=== PATIENT | male | born 1970 | race Caucasian/White ===

== ENCOUNTER → 2019-11-26 14:19 | Outpatient (CLI) | payer MEDICARE, MEDICAID, SELFPAY ==
[2019-11-26 15:34] LABS: Absolute Lymphocyte Count 3.44 X10^3/uL (0.83-4.51); Absolute Neutrophil Count 6.4 X10^3/uL (2.0-7.7); Basophil# 0.05 X10^3/uL; Basophil% 0.5 % (0-1); Eosinophil# 0.28 X10^3/uL; Eosinophils% 2.6 % (0-5); Hematocrit 45.6 % (40-54); Hemoglobin 15.3 g/dL (13.0-16.5); Lymphocyte # 3.44 X10^3/ul (4.0); Lymphocyte % 31.4 % (19-41); Mean Corp Hgb Conc 33.6 g/dL (32-36); Mean Corpuscular Volume 86.5 fL (80-94); Mean Platelet Vol. 11.1 fl (6.2-12.0); Monocyte# 0.76 X10^3/uL; Monocyte% 6.9 % (0-10); NRBC Flagged by Analyzer 0 % (0-5); Neutrophil # 6.36 X10^3/uL (2.7-7.7); Neutrophil % 58.1 % (47-70); Platelet Count 273 K/mm3 (150-450); RBC Distribution Width CV 12.4 % (11.6-14.6); RBC Distribution Width SD 39.7 fl (35.1-43.9); Red Blood Count 5.27 M/mm3 (4.6-6.2); White Blood Count 10.9 K/mm3 (4.4-11.0)
[2019-11-26 16:23] LABS: AST(SGOT) 21 U/L (15-37); Alanine Aminotransfer ALT/SGPT 24 U/L (16-61); Albumin, Serum 3.5 g/dL (3.2-5.0); Alkaline Phosphatase 81 U/L (45-117); Anion Gap 8 (5-15); BUN 18 mg/dL (7-18); BUN/Creat Ratio 18.3 RATIO (10-20); Bilirubin, Direct 0.13 mg/dL (0.00-0.30); Calcium,Total 8.9 mg/dL (8.5-10.1); Chloride 102 mmol/L (98-107); Creatinine, Serum 0.99 mg/dL (0.70-1.30); EST Glomerular Filtration Rate 86 mL/min (>60); Est Glom Filt Rate - Afr Amer 105 mL/min (>60); Globulin 4.3 g/dL (2.2-4.2); Glucose 99 mg/dL (74-106); Potassium 3.3 mmol/L (3.5-5.1); Protein, Total 7.8 g/dL (6.4-8.2); Sodium Level 140 mmol/L (136-145)
[2019-11-27 10:55] LABS: Hepatitis B Surface Antibody Non-Reactive; Hepatitis B Surface Antigen Non-Reactive (Nonreactive); Hepatitis C Antibody Non-Reactive (Nonreactive)
[2019-11-29 03:06] LABS: QNTFERON TB Mitogen Value > 10.00 IU/mL (.); QNTFERON TB Nil Value 0.02 IU/mL (.); QNTFERON TB1+ Ag Value 0.03 IU/mL (.); QNTFERON TB2+ Ag Value 0.02 IU/mL (.)
[2019-11-29 09:10] LABS: Hepatitis B Core AB IgM Negative (Negative); QNTIFERON TB Positive Criteria Negative (Negative)
== END ==
PROVIDERS: Referring Provider Dermatology; Visit Provider Dermatology
DX: L40.0 Psoriasis vulgaris (principal)
CPT/HCPCS: 36415; 80048; 80076; 85025; 86480; 86705; 86706; 86803; 87340

== ENCOUNTER → 2020-12-28 15:47 | Outpatient (CLI) | payer MEDICARE, SELFPAY ==
[2020-12-28 18:12] LABS: Absolute Lymphocyte Count 3.38 X10^3/uL (0.83-4.51); Absolute Neutrophil Count 7.2 X10^3/uL (2.0-7.7); Basophil# 0.07 X10^3/uL; Basophil% 0.6 % (0-1); Eosinophil# 0.32 X10^3/uL; Eosinophils% 2.7 % (0-5); Hematocrit 48.9 % (40-54); Hemoglobin 16.3 g/dL (13.0-16.5); Lymphocyte # 3.38 X10^3/ul (4.0); Lymphocyte % 28.3 % (19-41); Mean Corp Hgb Conc 33.3 g/dL (32-36); Mean Corpuscular Volume 90.1 fL (80-94); Mean Platelet Vol. 11.7 fl (6.2-12.0); Monocyte# 0.89 X10^3/uL; Monocyte% 7.5 % (0-10); NRBC Flagged by Analyzer 0 % (0-5); Neutrophil # 7.23 X10^3/uL (2.7-7.7); Neutrophil % 60.5 % (47-70); Platelet Count 285 K/mm3 (150-450); RBC Distribution Width CV 12.3 % (11.6-14.6); RBC Distribution Width SD 40.6 fl (35.1-43.9); Red Blood Count 5.43 M/mm3 (4.6-6.2); White Blood Count 11.9 K/mm3 (4.4-11.0)
[2020-12-28 18:26] LABS: ALB/GLOB Ratio 0.9 RATIO (0.9-2.4); AST(SGOT) 16 U/L (15-37); Alanine Aminotransfer ALT/SGPT 23 U/L (16-61); Albumin, Serum 3.6 g/dL (3.2-5.0); Alkaline Phosphatase 85 U/L (45-117); Anion Gap 6 (5-15); BUN 18 mg/dL (7-18); BUN/Creat Ratio 18.5 RATIO (10-20); Calcium,Total 8.9 mg/dL (8.5-10.1); Chloride 102 mmol/L (98-107); Creatinine, Serum 0.97 mg/dL (0.70-1.30); EST Glomerular Filtration Rate 87 mL/min (>60); Est Glom Filt Rate - Afr Amer 106 mL/min (>60); Globulin 3.8 g/dL (2.2-4.2); Glucose 73 mg/dL (74-106); Potassium 3.4 mmol/L (3.5-5.1); Protein, Total 7.4 g/dL (6.4-8.2); Sodium Level 140 mmol/L (136-145)
[2020-12-31 04:06] LABS: QNTFERON TB Mitogen Value > 10.00 IU/mL (.); QNTFERON TB Nil Value 0.04 IU/mL (.); QNTFERON TB1+ Ag Value 0.04 IU/mL (.); QNTFERON TB2+ Ag Value 0.02 IU/mL (.)
[2020-12-31 12:07] LABS: QNTIFERON TB Positive Criteria Negative (Negative)
== END ==
PROVIDERS: Referring Provider Dermatology; Visit Provider Dermatology
DX: L40.0 Psoriasis vulgaris (principal); Z79.899 Other long term (current) drug therapy
CPT/HCPCS: 36415; 80053; 85025; 86480

== ENCOUNTER 2021-08-15 07:08 | Emergency (ER) | payer MEDICARE, MEDICAID, SELFPAY ==
[2021-08-15 07:09] VITALS: BP 170/110; PULSE 73; RESP 27; TEMP 36.7; O2SAT 96; BMI 29.9
[2021-08-15 07:13] VITALS: O2SAT 95
[2021-08-15 07:28] VITALS: O2SAT 98
--- NOTE | 2021-08-15 07:28 | EKG12_ITS ---
Test Reason : Blood Pressure : / mmHG Vent. Rate : 063 BPM Atrial Rate : 063 BPM P-R Int : 172 ms QRS Dur : 092 ms QT Int : 410 ms P-R-T Axes : 066 000 057 degrees QTc Int : 419 ms Normal sinus rhythm Normal ECG Confirmed by VERA BLANCO, CHRISTOPHER ([id number]), commissioning editor LUIS MOJICA ([id number]) on 08/16/2021 9:28:03 AM Referred By: SEEMA Confirmed By:CHRISTOPHER GAMEZ MD
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
--- NOTE | 2021-08-15 07:45 | RAD_ITS ---
STUDY: X-RAY CHEST REASON FOR EXAM: Male, 51 years old. chest pain TECHNIQUE: AP COMPARISON: None. FINDINGS: EKG leads project over the chest. The lungs are clear and expanded. There is no demonstrated pleural abnormality. Normal size heart. Normal mediastinum and nathalia. Normal visualized pulmonary arteries. There is atherosclerotic calcification of the aortic arch with tortuosity. Normal visualized thoracic spine. Normal visualized ribs, clavicles, and shoulders. There is no demonstrated abnormality of the visualized soft tissue structures of the upper abdomen. RAD/Chest 1 View (Portable) IMPRESSION: Nonacute portable x-ray examination of the chest. Electronically Signed: Moiz Singh MD ([place]) at 7:57 EST , Service support ,
[2021-08-15 07:46] LABS: Absolute Lymphocyte Count 2.72 X10^3/uL (0.83-4.51); Absolute Neutrophil Count 3.7 X10^3/uL (2.0-7.7); Basophil# 0.06 X10^3/uL; Basophil% 0.8 % (0-1); Eosinophil# 0.31 X10^3/uL; Eosinophils% 4.1 % (0-5); Hematocrit 42.6 % (40-54); Hemoglobin 14.3 g/dL (13.0-16.5); Lymphocyte # 2.72 X10^3/ul (0.83-4.51); Lymphocyte % 36.2 % (19-41); Mean Corp Hgb Conc 33.6 g/dL (32-36); Mean Corpuscular Hgb 29.9 pg (27.0-32.0); Mean Corpuscular Volume 88.9 fL (80-94); Mean Platelet Vol. 10.2 fl (6.2-12.0); Monocyte# 0.73 X10^3/uL; Monocyte% 9.7 % (0-10); NRBC Flagged by Analyzer 0 % (0-5); Neutrophil # 3.68 X10^3/uL (2.7-7.7); Neutrophil % 48.9 % (47-70); Platelet Count 242 K/mm3 (150-450); RBC Distribution Width SD 42.8 fl (35.1-43.9); Red Blood Count 4.79 M/mm3 (4.6-6.2); White Blood Count 7.5 K/mm3 (4.4-11.0)
--- NOTE | 2021-08-15 07:52 | CT_ITS ---
EXAM: CT ANGIOGRAPHY CHEST WITHOUT AND WITH INTRAVENOUS CONTRAST CLINICAL INDICATION: hemoptysis TECHNIQUE: Helically acquired angiography images were obtained of the chest without and with intravenous contrast. This CT exam was performed using one or more of the following dose reduction techniques: automated exposure control, adjustment of the mA and/or kV according to patient size, and/or use of iterative reconstruction technique. This report was created using [employer] report generation technology. MIP reconstructed images were created and reviewed. CONTRAST: IV 100mL Isovue-300 COMPARISON: None. FINDINGS: PULMONARY ARTERIES: Unremarkable. Normal in caliber. No evidence of pulmonary embolism. AORTA: Operative changes of the aortic arch. Normal in caliber. No evidence of dissection. No thoracic aortic pseudoaneurysm or discrete outpouching identified. No extraluminal contrast. GREAT VESSELS OF AORTIC ARCH: Unremarkable. Normal in caliber. No evidence of dissection. LUNGS AND PLEURAL SPACES: Heterogeneous, ill-defined groundglass opacity and bronchovascular micronodules of the medial left upper lobe abutting the aortic arch. No pleural effusion or thickening. No pneumothorax. Fluid/debris layers dependently within the trachea and left upper lobe/lingular bronchi. HEART: Unremarkable. Heart size is normal. No pericardial effusion. No signs of right heart strain. MEDIASTINUM: Unremarkable. No mediastinal or hilar adenopathy. Esophagus is unremarkable. No hiatal hernia. THYROID: Unremarkable. No thyroid lesions. BONES/JOINTS: Unremarkable. No suspicious lytic or blastic abnormality. CT/CTA Chest W/WO Contrast IMPRESSION: 1. Localized airspace disease in the medial left upper lobe abutting the aortic arch suggesting pneumonia, localized edema or pulmonary hemorrhage/blood products. 2. Postoperative changes/graft of the aortic arch. 3. No central or segmental pulmonary embolism. 4. Fluid/debris in the dependent portion of the trachea and left bronchi. Electronically Signed: Moiz Singh MD ([place]) at 8:36 EST , Service support ,
[2021-08-15 07:54] LABS: Anion Gap 6 (5-15); BUN 17 mg/dL (7-18); Calcium,Total 8.8 mg/dL (8.5-10.1); Chloride 106 mmol/L (98-107); Creatinine, Serum 0.77 mg/dL (0.70-1.30); EST Glomerular Filtration Rate 114 mL/min (>60); Est Glom Filt Rate - Afr Amer 138 mL/min (>60); Estimated Creatinine Clearance 119.82 ml/min; Glucose 98 mg/dL (74-106); Sodium Level 141 mmol/L (136-145)
[2021-08-15 10:18] VITALS: BP 158/92; PULSE 65; RESP 22
[2021-08-15 10:22] VITALS: BP 158/92; PULSE 62; RESP 18
[2021-08-15] MEDS: Azithromycin 250 MG Tablet 500 MG PO (10:30)
== END 2021-08-15 10:33 | disposition home or self-care (01) ==
PROVIDERS: Emergency Provider Emergency Medicine
DX: J18.9 Pneumonia, unspecified organism (principal); R04.2 Hemoptysis; F17.210 Nicotine dependence, cigarettes, uncomplicated; Z86.718 Personal history of other venous thrombosis and embolism
CPT/HCPCS: 71045; 71275; 80048; 85025; 93005; 99285; Q9967; A4216

== ENCOUNTER 2024-09-26 04:05 | Emergency (ER) | payer MEDICARE, MEDICAID, SELFPAY ==
[2024-09-26] VITALS (11 sets, daily range): BP systolic 152–239; BP diastolic 78–122; PULSE 70–97; RESP 17–27; TEMP -17.7–36.9; O2SAT 84–100; BMI 29.7
--- NOTE | 2024-09-26 04:18 | EKG12_ITS ---
Test Reason : DYSRHYTHMIA Blood Pressure : */* mmHG Vent. Rate : 94 BPM Atrial Rate : 94 BPM P-R Int : 182 ms QRS Dur : 94 ms QT Int : 364 ms P-R-T Axes : 94 11 72 degrees QTcB Int : 455 ms Sinus rhythm with Premature atrial complexes Nonspecific ST abnormality Abnormal ECG Confirmed by SHEYLA BLANCO, SHIRA ([id number]), greeting card editor LUIS MOJICA ([id number]) on 09/28/2024 7:02:33 AM Referred By: TL Confirmed By: SHIRA CARRION MD
--- NOTE | 2024-09-26 04:30 | RAD_ITS ---
EXAM: XR CHEST, 1 VIEW CLINICAL INDICATION: cough TECHNIQUE: Frontal view of the chest. COMPARISON: Single view chest 08/15/2021 FINDINGS: LUNGS AND PLEURAL SPACES: Left apical airspace disease. No pneumothorax. No effusion. HEART: Unremarkable. Cardiac silhouette not enlarged. MEDIASTINUM: Central airways and mediastinal contour are unremarkable. BONES/JOINTS: Unremarkable. No acute fracture. SOFT TISSUES: Unremarkable. RAD/Chest 1 View (Portable) IMPRESSION: Left apical airspace disease. Findings likely indicate pneumonia. Interval follow-up is recommended to ensure resolution. Electronically Signed: Jonh Nixon MD at 5:28 EST ,
[2024-09-26 04:31] LABS: Absolute Lymphocyte Count 3.37 X10^3/uL (0.83-4.51); Absolute Neutrophil Count 8.2 X10^3/uL (2.0-7.7); Basophil# 0.12 X10^3/uL; Basophil% 0.9 % (0-1); Eosinophil# 0.59 X10^3/uL; Eosinophils% 4.4 % (0-5); Hematocrit 46.6 % (40-54); Hemoglobin 15.1 g/dL (13.0-16.5); Lymphocyte # 3.37 X10^3/ul (0.83-4.51); Lymphocyte % 25.2 % (19-41); Mean Corp Hgb Conc 32.4 g/dL (32-36); Mean Corpuscular Hgb 29.5 pg (27.0-32.0); Mean Corpuscular Volume 91.2 fL (80-94); Mean Platelet Vol. 10.3 fl (6.2-12.0); Monocyte# 1.04 X10^3/uL; Monocyte% 7.8 % (0-10); NRBC Flagged by Analyzer 0 % (0-5); Neutrophil # 8.16 X10^3/uL (2.7-7.7); Platelet Count 342 K/mm3 (150-450); RBC Distribution Width CV 12.7 % (11.6-14.6); RBC Distribution Width SD 42.8 fl (35.1-43.9); Red Blood Count 5.11 M/mm3 (4.6-6.2); White Blood Count 13.4 K/mm3 (4.4-11.0)
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
[2024-09-26 05:00] LABS: BNP,B-Type NATRIURETIC PEPTIDE 74.1 pg/mL (0-100)
[2024-09-26 05:01] LABS: ALB/GLOB Ratio 0.8 RATIO (0.9-2.4); AST(SGOT) 15 U/L (15-37); Alanine Aminotransfer ALT/SGPT 19 U/L (16-61); Albumin, Serum 3.6 g/dL (3.2-5.0); Alkaline Phosphatase 107 U/L (45-117); Anion Gap 15 (5-15); BUN 14 mg/dL (7-18); BUN/Creat Ratio 13.2 RATIO (10-20); Calcium,Total 8.8 mg/dL (8.5-10.1); Chloride 106 mmol/L (98-107); Creatinine, Serum 1.06 mg/dL (0.70-1.30); EST Glomerular Filtration Rate 78 mL/min (>60); Est Glom Filt Rate - Afr Amer 94 mL/min (>60); Estimated Creatinine Clearance 93.87 ml/min; Globulin 4.5 g/dL (2.2-4.2); Glucose 142 mg/dL (74-106); Protein, Total 8.1 g/dL (6.4-8.2); Sodium Level 139 mmol/L (136-145); Troponin-I HS 25 pg/mL (3.0-78.0)
[2024-09-26 05:03] LABS: Lactic Acid 11.5 mmol/L (0.4-1.9)
[2024-09-26 05:04] LABS: International Normalized Ratio 1.1; Prothrombin Time (Protime)PT. 13.8 SECONDS (11.7-14.9)
[2024-09-26 05:05] LABS: Partial Thromboplast Time 27.5 Seconds (24.1-36.2)
[2024-09-26 05:30] LABS: Magnesium 2.1 mg/dL (1.6-2.6)
--- NOTE | 2024-09-26 05:34 | CT_ITS ---
EXAM: CT ANGIOGRAPHY CHEST WITHOUT AND WITH INTRAVENOUS CONTRAST CLINICAL INDICATION: dyspnea, hemoptysis TECHNIQUE: Helically acquired angiography images were obtained of the chest without and with intravenous contrast. This CT exam was performed using one or more of the following dose reduction techniques: automated exposure control, adjustment of the mA and/or kV according to patient size, and/or use of iterative reconstruction technique. MIP reconstructed images were created and reviewed. CONTRAST: IV 100mL Isovue-370 RADIATION DOSE: CTDIvol = 12.59 mGy, DLP = 493.48 mGy-cm COMPARISON: CTA chest 08/15/2021 FINDINGS: PULMONARY ARTERIES: Unremarkable. Normal in caliber. No evidence of pulmonary embolism. AORTA: Surgical changes at the aortic arch. Normal in caliber. No evidence of dissection. GREAT VESSELS OF AORTIC ARCH: Unremarkable. Normal in caliber. No evidence of dissection. LUNGS AND PLEURAL SPACES: Patchy airspace disease in the left upper lobe, bilateral lower lobes and right middle lobe. No mass. No pleural effusion or thickening. HEART: Unremarkable. Heart size is normal. No pericardial effusion. No significant coronary artery calcifications. MEDIASTINUM: Unremarkable. No mediastinal or hilar adenopathy. Esophagus is unremarkable. No hiatal hernia. THYROID: Unremarkable. No thyroid lesions. BONES/JOINTS: Unremarkable. No suspicious lytic or blastic abnormality. CT/CTA Chest W/WO Contrast IMPRESSION: 1. Patchy airspace disease in the left upper lobe, bilateral lower lobes and right middle lobe. Findings likely indicate pneumonia. 2. No evidence of pulmonary embolism. Electronically Signed: Jonh Nixon MD at 6:12 EST ,
[2024-09-26] MEDS: VIAFLEX IV (05:46)
[2024-09-26] MEDS: Potassium Chloride Oral Tablet 20 MEQ 40 MEQ PO (05:46)
[2024-09-26] MEDS: NORMAL SALINE IV (05:46)
[2024-09-26 06:07] LABS: Bacteria 0 SEEN /hpf (None Seen); Mucous, Urine 0 SEEN /hpf (<or=2+); Squamous Epithelial Cells - UA 0 SEEN /hpf (0-5)
[2024-09-26] MEDS: Ceftriaxone 2 GM in 0.9% Normal Saline (50mL MB+) 50 ML IV (06:08)
[2024-09-26 06:11] LABS: Color, Urine Yellow (Yellow); Glucose, Dipstick Normal (Normal); Ketone-Dipstick Negative (Negative); Leukocyte Esterase-Dipstick Negative /ul (Negative); Nitrite-Dipstick Negative (Negative); Occult Blood-Urine Negative /ul (Negative); Protein-Dipstick 100 mg/dl (Negative); Specific Gravity, Urine 1.025 (1.002-1.030); Urine Bilirubin Dipstick Negative (Negative); Urine Clarity Clear (Clear); Urine Urobilinogen Normal (Normal)
[2024-09-26 06:49] LABS: Red Blood Cells-Urine 0-5 SEEN /hpf (0-5); White Blood Cells 0-5 SEEN /hpf (0-5)
[2024-09-26] MEDS: Azithromycin 500 MG in 0.9% Normal Saline (250mL Bag) 250 ML 250 MG IV (06:50)
--- NOTE | 2024-09-26 07:54 | ED.RN ---
patient declined covid,flu,rsv pcr swab
[2024-09-26] MEDS: Ondansetron ODT 4 MG Tablet PO (08:01)
[2024-09-26 08:25] LABS: Reflex Lactate? Y
== END 2024-09-26 08:17 | disposition left against medical advice (07) ==
PROVIDERS: Emergency Provider Emergency Medicine; Visit Provider Emergency Medicine
DX: R04.2 Hemoptysis (principal); Z89.611 Acquired absence of right leg above knee; J18.9 Pneumonia, unspecified organism; R09.02 Hypoxemia; R10.9 Unspecified abdominal pain; R93.89 Abnormal findings on diagnostic imaging of other specified body structures; I10 Essential (primary) hypertension; F17.210 Nicotine dependence, cigarettes, uncomplicated; Z66 Do not resuscitate; Z53.29 Procedure and treatment not carried out because of patient's decision for other reasons; Z91.199 Patient's noncompliance with other medical treatment and regimen due to unspecified reason; Z91.148 Patient's other noncompliance with medication regimen for other reason; Z86.79 Personal history of other diseases of the circulatory system; Z98.890 Other specified postprocedural states
CPT/HCPCS: 71045; 71275; 80053; 81001; 83605; 83735; 83880; 84484; 85025; 85379; 85610; 85730; 87040; 87086; 93005; 96361; 96365; 96367; 99285; Q9967; A4216; J0696

== ENCOUNTER 2024-11-05 20:35 | Emergency (ER) | payer MEDICARE, MEDICAID, SELFPAY ==
[2024-11-05] VITALS (15 sets, daily range): BP systolic 152–195; BP diastolic 80–128; PULSE 60–72; RESP 14–30; TEMP 36.8; O2SAT 96–99; BMI 30.8
[2024-11-05] MEDS: LORazepam 2 MG/ML Syringe 1 MG IV (21:25)
[2024-11-05 21:34] LABS: Absolute Lymphocyte Count 1.48 X10^3/uL (0.83-4.51); Absolute Neutrophil Count 3.2 X10^3/uL (2.0-7.7); Basophil# 0.04 X10^3/uL; Basophil% 0.7 % (0-1); Eosinophil# 0.54 X10^3/uL; Eosinophils% 9.6 % (0-5); Hematocrit 39.6 % (40-54); Hemoglobin 12.9 g/dL (13.0-16.5); Lymphocyte # 1.48 X10^3/ul (0.83-4.51); Lymphocyte % 26.3 % (19-41); Mean Corp Hgb Conc 32.6 g/dL (32-36); Mean Corpuscular Hgb 29.6 pg (27.0-32.0); Mean Corpuscular Volume 90.8 fL (80-94); Mean Platelet Vol. 10.8 fl (6.2-12.0); Monocyte# 0.35 X10^3/uL; Monocyte% 6.2 % (0-10); NRBC Flagged by Analyzer 0 % (0-5); Neutrophil # 3.21 X10^3/uL (2.7-7.7); Platelet Count 236 K/mm3 (150-450); RBC Distribution Width CV 12.9 % (11.6-14.6); Red Blood Count 4.36 M/mm3 (4.6-6.2); White Blood Count 5.6 K/mm3 (4.4-11.0)
--- NOTE | 2024-11-05 21:34 | CT_ITS ---
PROCEDURE: CTA CHEST W/WO CONTRAST REASON FOR EXAM: Vomiting blood. TECHNIQUE: CTA imaging of the chest with intravenous contrast. 3D reconstructions. COMPARISON: 09/26/2024 CT. FINDINGS: Hardware: None. Lymph nodes: No mediastinal hilar or axillary lymphadenopathy. Heart: Normal heart size. No pericardial effusion. 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 Pulmonary Vessels: No evidence of acute pulmonary emboli through the major subsegmental branches. Most Proximal Level of Embolus (if embolus present): N/A Lungs and Airways: Faint ground-glass opacities of the lung bases and lingula suspicious for infection/inflammation. Pleura: No pleural effusion. No pneumothorax. Upper Abdomen: Visualized portions of the upper abdominal viscera are unremarkable. Bones: Bone windows are unremarkable. Thoracic Aorta: Aortic arch penetrating ulcer, unchanged from the prior examination. CT/CTA Chest W/WO Contrast IMPRESSION: No pulmonary embolism. Faint ground-glass opacity of the bilateral lower lobes and lingula suspicious for infection/inflammation. Unchanged aortic arch penetrating ulcer. One or more dose reduction techniques were used (e.g., Automated exposure contr ol, adjustment of the mA and/or kV according to patient size, use of iterative reconstruction technique). Reading Location: [id number]
[2024-11-05 21:45] LABS: Anion Gap 6 (5-15); BUN 12 mg/dL (7-18); Calcium,Total 8.5 mg/dL (8.5-10.1); Chloride 108 mmol/L (98-107); Creatinine, Serum 0.86 mg/dL (0.70-1.30); EST Glomerular Filtration Rate 100 mL/min (>60); Est Glom Filt Rate - Afr Amer 121 mL/min (>60); Estimated Creatinine Clearance 117.67 ml/min; Glucose 132 mg/dL (74-106); Potassium 3.6 mmol/L (3.5-5.1); Sodium Level 141 mmol/L (136-145); Troponin-I HS 17 pg/mL (3.0-78.0)
[2024-11-05 22:03] LABS: International Normalized Ratio 1.1; Partial Thromboplast Time 33.5 Seconds (24.1-36.2); Prothrombin Time (Protime)PT. 13.9 SECONDS (11.7-14.9)
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
[2024-11-06] VITALS: BP 137/77; PULSE 54; RESP 20; O2SAT 96
[2024-11-06 00:15] VITALS: PULSE 48; RESP 21; O2SAT 99
[2024-11-06 00:30] VITALS: BP 144/68; PULSE 55; RESP 23; O2SAT 96
[2024-11-06 00:34] VITALS: BP 144/68; PULSE 54; RESP 20; TEMP 36.7; O2SAT 96
[2024-11-06 00:45] VITALS: PULSE 53; RESP 21; O2SAT 96
[2024-11-06 01:00] VITALS: BP 141/69; PULSE 54; RESP 20
== END 2024-11-06 02:02 | disposition short-term general hospital (02) ==
PROVIDERS: Emergency Provider Emergency Medicine; Visit Provider Emergency Medicine
DX: I71.22 Aneurysm of the aortic arch, without rupture (principal); R04.2 Hemoptysis; F17.210 Nicotine dependence, cigarettes, uncomplicated; I10 Essential (primary) hypertension; Z86.79 Personal history of other diseases of the circulatory system; Z98.890 Other specified postprocedural states
CPT/HCPCS: 71275; 80048; 84484; 85025; 85610; 85730; 86850; 86900; 86901; 96374; 96375; 99285; Q9967; A4216

== ENCOUNTER 2024-11-28 07:21 | Emergency (ER) | payer MEDICARE, MEDICAID, SELFPAY ==
[2024-11-28 07:21] VITALS: BP 162/104; PULSE 61; RESP 28; TEMP 36.5; O2SAT 94
--- NOTE | 2024-11-28 07:32 | EKG12_ITS ---
Test Reason : Blood Pressure : */* mmHG Vent. Rate : 61 BPM Atrial Rate : 61 BPM P-R Int : 176 ms QRS Dur : 94 ms QT Int : 430 ms P-R-T Axes : 70 -1 54 degrees QTcB Int : 432 ms Normal sinus rhythm Normal ECG Confirmed by El Monroy ([id number]), editor farm journal JOSE DAWSON ([id number]) on 11/30/2024 10:19:00 AM Referred By: Confirmed By: El Monroy
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
--- NOTE | 2024-11-28 07:49 | ED.RN ---
Pt refusing Covid, Flu, RSV swab. Doctor aware
--- NOTE | 2024-11-28 07:50 | RAD_ITS ---
PROCEDURE: CHEST 1 VIEW (PORTABLE) REASON FOR EXAM: Shortness of breath TECHNIQUE: Frontal and lateral views of the chest. COMPARISON: 09/26/2024 FINDINGS: The heart size is normal. There are atherosclerotic calcifications of the thoracic aorta. The lungs are clear. The bones are unremarkable. RAD/Chest 1 View (Portable) IMPRESSION: No radiographic evidence of acute cardiopulmonary disease Reading Location: [facility]
--- NOTE | 2024-11-28 07:58 | CT_ITS ---
PROCEDURE: CTA CHEST W/WO CONTRAST REASON FOR EXAM: Hemoptysis, history of aortic arch ulcer TECHNIQUE: CTA imaging of the chest with intravenous contrast. 3D reconstructions. CONTRAST: COMPARISON: # of known CTs in the past 12 months: 0 # of known Cardiac Nuclear Medicine Studies in the past 12 months: 0 11/05/2024 FINDINGS: Hardware: None. Lymph nodes: No mediastinal hilar or axillary lymphadenopathy. Heart: Coronary artery calcifications are noted. Thoracic Aorta: Moderate atherosclerotic changes in the thoracic aorta. There is a penetrating aortic ulcer on the proximal descending thoracic aorta measuring 2.1 x 1.4 cm. Pulmonary Vessels: No large central filling defects. Contrast timing was optimized for evaluation of the aorta. Lungs and Airways: Patchy infiltrates in the bilateral bases, [id number]-left Pleura: No pleural effusion. No pneumothorax. Upper Abdomen: Visualized portions of the upper abdominal viscera are unremarkable. Bones: Bone windows are unremarkable. CT/CTA Chest W/WO Contrast IMPRESSION: 1. Bibasilar pneumonia 2. Interval increase in size of the penetrating aortic ulcer in the proximal d escending thoracic aorta One or more dose reduction techniques were used (e.g., Automated exposure contr ol, adjustment of the mA and/or kV according to patient size, use of iterative reconstruction technique). Reading Location: [facility]
[2024-11-28 08:14] LABS: Anion Gap 6 (5-15); BUN 22 mg/dL (7-18); BUN/Creat Ratio 30.3 RATIO (10-20); Calcium,Total 8.6 mg/dL (8.5-10.1); Chloride 108 mmol/L (98-107); Creatinine, Serum 0.73 mg/dL (0.70-1.30); EST Glomerular Filtration Rate 120 mL/min (>60); Est Glom Filt Rate - Afr Amer 146 mL/min (>60); Glucose 99 mg/dL (74-106); Potassium 3.9 mmol/L (3.5-5.1); Sodium Level 140 mmol/L (136-145); Troponin-I HS 20 pg/mL (3.0-78.0)
[2024-11-28 08:15] LABS: Absolute Lymphocyte Count 2.93 X10^3/uL (0.83-4.51); Absolute Neutrophil Count 4.6 X10^3/uL (2.0-7.7); Basophil% 1.1 % (0-1); Eosinophil# 0.65 X10^3/uL; Eosinophils% 7.2 % (0-5); Hemoglobin 14.2 g/dL (13.0-16.5); Lymphocyte # 2.93 X10^3/ul (0.83-4.51); Lymphocyte % 32.4 % (19-41); Mean Corp Hgb Conc 33.8 g/dL (32-36); Mean Corpuscular Hgb 30.2 pg (27.0-32.0); Mean Corpuscular Volume 89.4 fL (80-94); Mean Platelet Vol. 10.6 fl (6.2-12.0); Monocyte# 0.76 X10^3/uL; Monocyte% 8.4 % (0-10); NRBC Flagged by Analyzer 0 % (0-5); Neutrophil # 4.58 X10^3/uL (2.7-7.7); Neutrophil % 50.6 % (47-70); Platelet Count 267 K/mm3 (150-450); RBC Distribution Width CV 12.7 % (11.6-14.6); RBC Distribution Width SD 42.3 fl (35.1-43.9); White Blood Count 9.1 K/mm3 (4.4-11.0)
[2024-11-28 09:06] VITALS: BP 147/88; PULSE 55; RESP 20; TEMP 37.1; O2SAT 97
[2024-11-28 09:46] VITALS: BP 158/90; PULSE 51; RESP 17; O2SAT 98
[2024-11-28 10:04] VITALS: BP 169/99; PULSE 51; RESP 16; TEMP 37; O2SAT 97
[2024-11-28 10:50] VITALS: BP 169/98; PULSE 64; RESP 17; TEMP 37; O2SAT 98
== END 2024-11-28 11:08 | disposition left against medical advice (07) ==
PROVIDERS: Emergency Provider Emergency Medicine; Visit Provider Emergency Medicine
DX: I71.23 Aneurysm of the descending thoracic aorta, without rupture (principal); Z89.611 Acquired absence of right leg above knee; R04.2 Hemoptysis; J18.9 Pneumonia, unspecified organism; F17.210 Nicotine dependence, cigarettes, uncomplicated; Z98.890 Other specified postprocedural states; Z53.29 Procedure and treatment not carried out because of patient's decision for other reasons; Z87.828 Personal history of other (healed) physical injury and trauma
CPT/HCPCS: 71045; 71275; 80048; 84484; 85025; 93005; 99285; Q9967; A4216

== ENCOUNTER 2024-12-08 07:34 | Inpatient (IN) | payer MEDICARE, MEDICAID, SELFPAY ==
[2024-12-08] VITALS (41 sets, daily range): BP systolic 55–202; BP diastolic 42–101; PULSE 54–133; RESP 14–39; TEMP 36.6–38.4; O2SAT 68–100; BMI 28.8
--- NOTE | 2024-12-08 07:41 | EKG12_ITS ---
Test Reason : SOB Blood Pressure : */* mmHG Vent. Rate : 116 BPM Atrial Rate : 116 BPM P-R Int : 178 ms QRS Dur : 98 ms QT Int : 328 ms P-R-T Axes : 61 4 84 degrees QTcB Int : 455 ms Sinus tachycardia Otherwise normal ECG Confirmed by El Monroy [id number]), offline editor JOSE DAWSON ([id number]) on 12/10/2024 8:14:45 AM Referred By: Confirmed By: El Monroy
--- NOTE | 2024-12-08 07:41 | RAD_ITS ---
EXAM: XR Chest, 1 View CLINICAL INDICATION: TECHNIQUE: Frontal view of the chest. COMPARISON: No relevant prior studies available. FINDINGS: LUNGS AND PLEURAL SPACES: Pulmonary congestion and edema. Pneumonia cannot be excluded. No pneumothorax. HEART: Unremarkable. No cardiomegaly. MEDIASTINUM: Unremarkable. Normal mediastinal contour. BONES/JOINTS: Unremarkable. No acute fracture. TUBES, LINES AND DEVICES: The endotracheal tube (ETT) is in satisfactory position. Enteric tube tip in the stomach. RAD/Chest 1 View (Portable) IMPRESSION: Pulmonary congestion and edema. Pneumonia cannot be excluded. Reading [facility]
[2024-12-08] MEDS: Rocuronium Bromide 50 MG/5 ML Vial 73 MG IV (07:50)
[2024-12-08] MEDS: Etomidate 20 MG/10 ML Vial IV (07:50)
[2024-12-08 07:57] LABS: Absolute Lymphocyte Count 6.11 X10^3/uL (0.83-4.51); Absolute Neutrophil Count 9.1 X10^3/uL (2.0-7.7); Basophil# 0.15 X10^3/uL; Basophil% 0.9 % (0-1); Eosinophil# 0.62 X10^3/uL; Eosinophils% 3.6 % (0-5); Hemoglobin 15.4 g/dL (13.0-16.5); Lymphocyte # 6.11 X10^3/ul (0.83-4.51); Lymphocyte % 35.2 % (19-41); Mean Corp Hgb Conc 30.8 g/dL (32-36); Mean Corpuscular Volume 97.3 fL (80-94); Mean Platelet Vol. 10.9 fl (6.2-12.0); Monocyte# 1.35 X10^3/uL; Monocyte% 7.8 % (0-10); NRBC Flagged by Analyzer 0 % (0-5); Neutrophil # 9.07 X10^3/uL (2.7-7.7); Neutrophil % 52.1 % (47-70); POSITIVE DIFFERENTIAL YES; POSITIVE MORPHOLOGY YES; Platelet Count 323 K/mm3 (150-450); RBC Distribution Width SD 46.9 fl (35.1-43.9); Red Blood Count 5.14 M/mm3 (4.6-6.2); White Blood Count 17.4 K/mm3 (4.4-11.0)
[2024-12-08 07:59] LABS: Differential Indicated SCAN CRITERIA MET
--- NOTE | 2024-12-08 08:02 | EDS_ITS ---
HPI History of Present Illness Chief Complaint: Shortness of Breath Informant: patient and EMS Narrative Narrative: 54-year-old male presenting to the emergency department with the chief complaint of hemoptysis and shortness of breath. Patient was seen in the emergency department in September, October, and November. He has been diagnosed with a aortic arch ulcer. In October he was transferred to [facility] because he had been seen there in the past as a trauma when he underwent an aortic surgery back in the early . Patient underwent bronchoscopy and was treated with antibiotics for pneumonia. Patient in the November ED visit signed out AMA. It was noted on his CTA at that time that the ulcers seem to be increasing in size. He did not wish to be transferred back to [facility]. It was strongly recommended that he be transferred for CT surgery evaluation but he declined. Patient tells me that earlier this morning he began to cough up blood and experience shortness of breath. I spoke frankly with the patient. He states that he wishes e verything to be done that can be done at this moment including intubation CPR transfer and surgery. [facility] Medical History HTN (hypertension) Home Medications ?Medication ?Instructions ?Recorded ?Last Taken ?Type NK 11/05/24 Unknown History Allergy/AdvReac Type Severity Reaction Status Date / Time adhesive tape (tape) Allergy Mild Rash Verified 11/05/24 20:35 Surgical History Hx of AKA (above knee amputation) History of aortic aneurysm repair Social History Smoking Status: Current every day smoker tobacco type: cigarettes ROS ROS ED Constitutional Constitutional ED: Denies chills or weight loss Eyes Eyes: Denies change in vision or diplopia ENT ENT ED: Denies ear pain, rhinorrhea or sore throat Cardiovascular Cardiovascular: Reports chest pain and racing heartbeat; Denies orthopnea or palpitations Respiratory/Chest Respiratory/Chest: Reports cough, dyspnea and other Details: Hemoptysis ; Denies orthopnea Gastrointestinal Gastrointestinal: Denies abdominal pain, diarrhea, nausea or vomiting Genitourinary Genitourinary ED: Denies dysuria, hematuria or urinary frequency Musculoskeletal Musculoskeletal: Denies arthralgias or myalgias Integumentary Denies abscess or rash Neurologic Neurologic: Denies headache(s) or weakness Psychiatric Psychiatric: Denies anxiety, depression, suicidal ideation or suicidal thoughts Endocrine Endocrinology: Denies polydipsia, polyphagia or polyuria Allergic/Immunologic Allergic/Immunologic ED: Denies mouth swelling, tongue swelling or urticaria EXAM Physical Exam Narrative Exam Narrative: Patient appears in acute extremis. He is mottled from the nipple line down. He was diaphoretic. He is tachypneic. Const Vital Signs: 12/08/24 07:35 12/08/24 07:39 12/08/24 07:50 Temperature 97.8 F Temperature Source Temporal Pulse Rate 113 H Respiratory Rate 39 H Respiratory Effort Short of Breath Labored Short of Breath Labored Respiratory Depth Shallow Respiratory Pattern Tachypnea Blood Pressure Blood Pressure Mean Blood Pressure Position Blood Pressure Location Pulse Ox 68 Oxygen Delivery Method Room Air Fraction of Inspired Oxygen (FIO2) 12/08/24 07:57 12/08/24 08:05 12/08/24 08:30 Temperature Temperature Source Pulse Rate 133 H 100 82 Respiratory Rate 14 15 18 Respiratory Effort Respiratory Depth Respiratory Pattern Blood Pressure 141/89 H 202/101 H Blood Pressure Mean 106 134 Blood Pressure Position Blood Pressure Location Pulse Ox 94 99 98 Oxygen Delivery Method Mechanical Ventilator Mechanical Ventilator Fraction of Inspired Oxygen (FIO2) 100 12/08/24 08:40 12/08/24 08:59 12/08/24 09:00 Temperature Temperature Source Pulse Rate 81 Respiratory Rate 14 Respiratory Effort Respiratory Depth Respiratory Pattern Blood Pressure 115/77 Blood Pressure Mean 89 Blood Pressure Position Blood Pressure Location Pulse Ox 99 Oxygen Delivery Method Mechanical Ventilator Fraction of Inspired Oxygen (FIO2) 50 100 12/08/24 09:30 12/08/24 10:00 12/08/24 10:30 Temperature Temperature Source Pulse Rate 81 79 72 Respiratory Rate 18 18 14 Respiratory Effort Respiratory Depth Respiratory Pattern Blood Pressure 114/74 67/45 L 81/57 L Blood Pressure Mean 87 52 65 Blood Pressure Position Blood Pressure Location Pulse Ox 98 100 98 Oxygen Delivery Method Mechanical Ventilator Mechanical Ventilator Mechanical Ventilator Fraction of Inspired Oxygen (FIO2) 12/08/24 11:00 12/08/24 11:14 12/08/24 11:30 Temperature Temperature Source Pulse Rate 74 66 61 Respiratory Rate 18 14 18 Respiratory Effort Respiratory Depth Respiratory Pattern Blood Pressure 84/63 L 82/59 L Blood Pressure Mean 70 66 Blood Pressure Position Blood Pressure Location Pulse Ox 98 100 98 Oxygen Delivery Method Mechanical Ventilator Mechanical Ventilator Fraction of Inspired Oxygen (FIO2) 60 12/08/24 12:00 12/08/24 12:30 12/08/24 12:52 Temperature Temperature Source Pulse Rate 64 61 Respiratory Rate 14 20 H Respiratory Effort Respiratory Depth Respiratory Pattern Blood Pressure 57/47 L 55/42 L Blood Pressure Mean 50 46 Blood Pressure Position Blood Pressure Location Pulse Ox 100 97 Oxygen Delivery Method Mechanical Ventilator Mechanical Ventilator Fraction of Inspired Oxygen (FIO2) 40 12/08/24 13:00 12/08/24 13:03 12/08/24 13:17 Temperature Temperature Source Pulse Rate 62 61 62 Respiratory Rate 18 18 19 H Respiratory Effort Respiratory Depth Respiratory Pattern Blood Pressure 61/42 L 61/42 L 70/54 L Blood Pressure Mean 48 48 59 Blood Pressure Position Supine Blood Pressure Location Left Arm Left Arm Pulse Ox 100 100 100 Oxygen Delivery Method Mechanical Ventilator Mechanical Ventilator Mechanical Ventilator Fraction of Inspired Oxygen (FIO2) 12/08/24 13:30 12/08/24 14:00 12/08/24 14:30 Temperature Temperature Source Pulse Rate 64 61 64 Respiratory Rate 18 19 H 18 Respiratory Effort Respiratory Depth Respiratory Pattern Blood Pressure 115/80 108/73 129/86 H Blood Pressure Mean 91 84 100 Blood Pressure Position Blood Pressure Location Pulse Ox 100 100 100 Oxygen Delivery Method Mechanical Ventilator Mechanical Ventilator Mechanical Ventilator Fraction of Inspired Oxygen (FIO2) 12/08/24 14:59 12/08/24 15:17 12/08/24 15:30 Temperature Temperature Source Pulse Rate 66 65 63 Respiratory Rate 18 18 18 Respiratory Effort Respiratory Depth Respiratory Pattern Blood Pressure 130/83 H 127/86 H Blood Pressure Mean 98 99 Blood Pressure Position Blood Pressure Location Pulse Ox 100 100 100 Oxygen Delivery Method Mechanical Ventilator Mechanical Ventilator Fraction of Inspired Oxygen (FIO2) 40 Positive well nourished and well developed General Appearance ED: well developed HEENT Reports normocephalic, head/scalp atraumatic and moist mucous membranes HEENT Narrative: Blood in mouth and on irwin Eyes PERRL and EOMs intact bilaterally Neck no lymphadenopathy, supple and no JVD Resp Resp Narrative: Rhonchorous lung sounds are heard bilaterally. Patient is tachypneic Cardio regular rate, regular rhythm and no murmurs Rate: tachycardic GI normal to inspection, nondistended, normoactive bowel sounds and non-tender Palpation: soft Back/Spine no CVA tenderness and normal ROM Extremity normal to inspection Extremity Narrative: There is a strong dorsalis pedis pulse on the left. Right shows a amputation. General Extremety ED: Negative for edema General Extremity: Negative for edema Neuro oriented x3 and CN's II-XII intact bilaterally Sensorium / Orientation: alert Motor Exam: strength 5/5 throughout Psych Psych Narrative: Patient is argumentative with staff. He is refusing to wear oxygen. Attitude: agitated Mood & Affect: anxious; Negative for tearful Skin no wounds Skin Narrative: Diaphoretic and mottling of skin from nipple line inferiorly MDM MDM MDM Narrative Medical decision making narrative: Differential diagnosis includes but not limited to aortic dissection aortic rupture penetrating aortic ulcer pneumonia respiratory failure STEMI NSTEMI The patient is clearly an extremis. He is hypoxic at 67% on room air he wishes everything to be done. I explained to the patient that he would need to be intubated and placed on a ventilator and would require transfer if he wishes everything to be done. Patient gives me verbal consent. Patient underwent rapid sequence intubation using etomidate and rocuronium. A endotracheal tube was placed on the first attempt using the glide scope. It was secured at 24 cm. Equal breath sounds bilaterally with good color change. There is noted to be blood coming from the lungs through the vocal cords. Patient was given propofol and fentanyl for sedation. My independent interpretation of the postintubation x-ray is adequate placement of endotracheal tube. There is abnormality along the a arch of the aorta. This appears new since prior. ABG demonstrates a pH of 6.853 pCO2 of 83.2 PaO2 of 113.5 HCO3 14.6 Basic blood work shows a white count 17.4 hemoglobin of 15.4 platelet count of 323. INR is 1.2 PTT 28.7. Glucose 204 normal creatinine 1.08. Anion gap of 33. Lactic acid is 4.3. Normal LFTs and normal lipase. CTA of the chest was obtained. This was read by radiology reviewed by myself. There interpretation of the CT is concern for multifocal areas of pneumonia but no change in his aorta. The read shows nodular consolidation in the left lung apex measuring up to 4.3 cm. They do not feel there is been a significant change of the aorta ulcer. Though it was suboptimal due to beam hardening artifact from the patient's side arms. I reviewed the patient's CTA from both September or October and November. November is read as the ulcer measuring 2.1 x 1.4 cm. Patient was initially placed on propofol and fentanyl. The propofol was not providing adequate sedation and was causing some hypotension. He was switched to Precedex and fentanyl. Because the patient was thrashing on the bed I was concerned that perhaps the endotracheal tube had been removed. My independent interpretation of the film is still with adequate placement of the endotracheal tube but with worsening airspace disease. [facility] was contacted as the patient did not wish to return to [facility]. Patient has received Zosyn though I believe that the concern for pneumonia is most likely blood in the lungs and not an infectious cause. I believe his elevated lactic acid is most likely due to the profound hypoxia the patient was experiencing down to the 50s. Later cleared vancomycin. Patient became hypotensive and despite fluid boluses and adjustment of sedation medications the hypotension persisted. Therefore a right IJ central line was placed. This is placed under ultrasound guidance. Using modified Seldinger technique the central line was placed without significant difficulty. My independent interpretation of the post procedure films adequate placement of the central line. No obvious pneumothorax is seen. There has been advancement of the airspace disease. We are still awaiting her bed assignment from the main campus [facility]. They have been updated with the repeat blood gas. Ventilator settings have been adjusted to an increased rate because of the continued hypercarbia. FiO2 has now been decreased to 40. Levophed has been started with improvement of blood pressure. A repeat H&H was performed which shows a hemoglobin of 12.. As he has been accepted to [facility]. We are still waiting on a bed and is been several hours I will speak with the hospitalist regarding admission here until we can get a bed at their facility. ABG at 1530 hrs. demonstrates a pH of 7.392 pCO2 33.4 PaO2 of 139.9 HCO3 20.3 History & Record Review Discussion w/independent historian: EMS personnel and Patient Lab Data Attestation: I reviewed the patient's lab results. Labs: Laboratory Results - last 24 hr 12/08/24 12/08/24 12/08/24 07:40 09:20 10:20 WBC 17.4 H RBC 5.14 Hgb 15.4 Hct 50.0 MCV 97.3 H MCH 30.0 MCHC 30.8 L RDW Std Deviation 46.9 H RDW Coeff of Cris 13.0 Plt Count 323 MPV 10.9 Immature Gran % (Auto) 0.400 Neut % (Auto) 52.1 Lymph % (Auto) 35.2 [place] % (Auto) 7.8 Eos % (Auto) 3.6 Baso % (Auto) 0.9 Absolute Neuts (auto) 9.1 H Absolute Lymphs (auto) 6.11 H Nucleated RBC % 0 Reactive Lymphocytes 2+ Platelet Estimate A PT 15.4 H INR 1.2 APTT 28.7 Sodium 146 H Potassium 4.1 Chloride 102 Carbon Dioxide 11.1 L Anion Gap 33 H BUN 11 Creatinine 1.08 Estim Creat Clear Calc 90.85 Est GFR (MDRD) Non-Af 83 BUN/Creatinine Ratio 10.1 Glucose 204 H Lactic Acid 4.3 H* Calcium 10.1 Total Bilirubin 0.40 Direct Bilirubin 0.16 AST 26 ALT 18 Alkaline Phosphatase 85 Total Creatine Kinase 87 Troponin T High Sens 16 Troponin T Hi Sens 2 Hr 246 H* Troponin T Hi Sens 2Hr Delta 231 Troponin T Hi Sens 4Hr Troponin T Hi Sens 4Hr Delta Total Protein 8.3 Albumin 4.5 Globulin 3.7 Triglycerides 125 Lipase 52 12/08/24 12/08/24 11:55 12:46 WBC RBC Hgb 12.0 L Hct 36.6 L MCV MCH MCHC RDW Std Deviation RDW Coeff of Cris Plt Count MPV Immature Gran % (Auto) Neut % (Auto) Lymph % (Auto) [place] % (Auto) Eos % (Auto) Baso % (Auto) Absolute Neuts (auto) Absolute Lymphs (auto) Nucleated RBC % Reactive Lymphocytes Platelet Estimate PT INR APTT Sodium Potassium Chloride Carbon Dioxide Anion Gap BUN Creatinine Estim Creat Clear Calc Est GFR (MDRD) Non-Af BUN/Creatinine Ratio Glucose Lactic Acid Calcium Total Bilirubin Direct Bilirubin AST ALT Alkaline Phosphatase Total Creatine Kinase Troponin T High Sens Troponin T Hi Sens 2 Hr Troponin T Hi Sens 2Hr Delta Troponin T Hi Sens 4Hr 454 H* Troponin T Hi Sens 4Hr Delta 439 Total Protein Albumin Globulin Triglycerides Lipase ABG Data ABG results: ABG 12/08/24 12/08/24 08:13 11:59 Specimen Type ART CARO Sample Site L Radial R Brach pH 6.85 L* 7.19 L* Bicarbonate Actual 14.6 L 26.6 H Total CO2 17 29 Base Excess -19 L -2 O2 Saturation 92 L 28 L O2 % 100.0 40.0 ABG pCO2 83.2 H* 69.7 H* ABG pO2 114 H 23 L* Abundio Test Positive Respiration Rate 14 O2 Delivery Device Bagging BiPAP Vent Mode Not entered Not entered Tidal Volume 500.0 POC PEEP 5 Crit Call To/Read Back Yes Yes Blood Gas Notified Whom Dr. Gomes Blood Gas Notified Time 08:15:14 Radiography Diagnostic Testing: Clinical Impression(s) from Imaging Studies Chest X-Ray 12/08/24 07:41 IMPRESSION: Pulmonary congestion and edema. Pneumonia cannot be excluded. Reading Location: [facility] Chest CTA 12/08/24 08:39 IMPRESSION: 1. No pulmonary embolism is identified. Some of the distal pulmonary arteries cannot be evaluated due to suboptimal opacification. 2. Probable developing multifocal pneumonia. Reading Location: [facility] Chest X-Ray 12/08/24 11:20 IMPRESSION: The tip of the endotracheal tube is at 3.8 cm proximal to the hong. Left lower lobe infiltrate with blunting of the left costophrenic angle. Stable mass or infiltrate in the left upper lobe. Reading Location: [id number] Chest X-Ray 12/08/24 12:45 IMPRESSION: 1. Right IJ venous catheter with distal tip in the atriocaval junction. No pneumothorax. 2. Cardiomegaly with mild congestion. [facility] E[facility] Initial EKG: Attestation: I personally reviewed and interpreted this EKG as follows: Comments: Sinus tachycardia ventricular rate of 116 bpm Management Discussion w/another healthcare provider: Brass Pourer ([facility]) Critical Care Time Critical Care Time: Yes Critical care time (excluding procedures): 30-74 minutes (35 min), Including time spent:, Discussing w/Patient &/or Family/Nurse School, Discussing w/Consultants, Arranging Admission or Transfer and Performing Direct Patient Care at Bedside Discharge Plan Triage Chief Complaint: Shortness of Breath ED Provider: Dimitry Gomes Dx/Rx/DC Orders Clinical Impression: Acute respiratory failure, Hemoptysis, Penetrating ulcer of aorta, Acute hypotension Prescriptions: No Action NK Primary Care Provider: Care Physician,No Primary Referrals: Care Physician,No Primary [Primary Care Provider] - Print Language: Tajik Disposition Disposition: Acute Care Hospital Discharge Location: [facility]
[2024-12-08 08:06] LABS: International Normalized Ratio 1.2; Prothrombin Time (Protime)PT. 15.4 SECONDS (11.7-14.9)
[2024-12-08 08:07] LABS: Partial Thromboplast Time 28.7 Seconds (24.1-36.2)
[2024-12-08] MEDS: Propofol 10MG/Ml 1,000 MG/100 ML Bottle 5.5 MG CONT INF (08:15)
[2024-12-08] MEDS: 0.9% Normal Saline (1000mL) 1,000 ML 1000 ML IV (08:15)
[2024-12-08 08:18] LABS: Allen Test Positive; Base Excess -19 mmol/L (-2 to +2); Bicarbonate 14.6 mmol/L (22-26); Blood Gas Specimen Type ART; Mode Not entered; O2 Delivery Device Bagging; PO2 114 mmHG (75-100); SITE L Radial; SO2 92 % (95-99); Total Carbon Dioxide 17 mmol/L; pCO2 83.2 mmHg (35-45); pH 6.85 (7.35-7.45)
[2024-12-08] MEDS: fentaNYL drip 100 ML 5 MCG CONT INF (08:22)
--- NOTE | 2024-12-08 08:39 | CT_ITS ---
EXAM: CT Angiography Chest Without and With Intravenous Contrast CLINICAL INDICATION: TECHNIQUE: Axial computed tomographic angiography images of the chest without and with intravenous contrast. This CT exam was performed using one or more of the following dose reduction techniques: automated exposure control, adjustment of the mA and/or kV according to patient size, and/or use of iterative reconstruction technique. MIP reconstructed images were created and reviewed. COMPARISON: CTA Chest dated 11/28/2024 FINDINGS: ARTIFACTS: Beam hardening artifacts. Motion artifact. LIMITATIONS: Suboptimal opacification of the pulmonary arteries. PULMONARY ARTERIES: No pulmonary embolism is identified. Some of the distal pulmonary arteries cannot be evaluated due to suboptimal opacification. AORTA: No acute findings. No thoracic aortic aneurysm. LUNGS AND PLEURAL SPACES: Nodular consolidation of the left lung apex measuring up to 4.3 cm. Lung emphysema/COPD. Scattered ground-glass attenuation of both lungs. No significant effusion. No pneumothorax. HEART: Unremarkable. No cardiomegaly. No significant pericardial effusion. No evidence of RV dysfunction. BONES/JOINTS: No acute fracture. No dislocation. SOFT TISSUES: Unremarkable. LYMPH NODES: Unremarkable. No enlarged lymph nodes. GALLBLADDER AND BILE DUCTS: Gallbladder is surgically absent. TUBES, LINES AND DEVICES: Enteric tube tip in the stomach. CT/CTA Chest W/WO Contrast IMPRESSION: 1. No pulmonary embolism is identified. Some of the distal pulmonary arteries cannot be evaluated due to suboptimal opacification. 2. Probable developing multifocal pneumonia. Reading Location: [facility]
[2024-12-08 08:50] LABS: Lipase 52 U/L (13-75); Troponin T High Sensitivity 16 ng/L (<=22)
[2024-12-08 08:52] LABS: AST(SGOT) 26 U/L (<=37); Alanine Aminotransfer ALT/SGPT 18 U/L (<=46); Albumin, Serum 4.5 g/dL (3.5-5.0); Alkaline Phosphatase 85 U/L (40-129); Anion Gap 33 (5-15); BUN 11 mg/dL (4-19); BUN/Creat Ratio 10.1 RATIO (10-20); Bilirubin, Direct 0.16 mg/dL (0.00-0.30); Calcium,Total 10.1 mg/dL (7.6-11.0); Carbon Dioxide 11.1 mmol/L (21.0-32.0); Chloride 102 mmol/L (98-108); Creatinine, Serum 1.08 mg/dL (0.70-1.20); EST Glomerular Filtration Rate 83 (>60); Estimated Creatinine Clearance 90.85 ml/min (50-250); Globulin 3.7 g/dL (2.2-4.2); Glucose 204 mg/dL (70-99); Potassium 4.1 mmol/L (3.3-5.1); Protein, Total 8.3 g/dL (5.9-8.4); Sodium Level 146 mmol/L (133-145)
[2024-12-08] MEDS: Piperacil/Tazobactam 4.5 GM in 0.9% Normal Saline (100mL MB+) 100 ML IV (09:19)
--- NOTE | 2024-12-08 09:26 | ED.RN ---
vanita Gomes to up Propofol @[id number]
[2024-12-08 09:35] LABS: Platelet Estimate A (ADEQ); Reactive Lymphocyte 2+
[2024-12-08] MEDS: Midazolam 5 MG/ML Syringe IV ×2 (09:53→12:26)
[2024-12-08 10:02] LABS: CPK Total, Creatine Kinase 87 U/L (24-195); Triglycerides 125 mg/dL
[2024-12-08 10:07] LABS: Lactic Acid 4.3 mmol/L (0.0-2.0)
[2024-12-08] MEDS: dexMEDEtomidine 400 MCG in 0.9% Normal Saline (100mL Bag) 96 ML 11.4 MCG CONT INF (10:07)
--- NOTE | 2024-12-08 10:08 | ED.RN ---
Critical Lactic of 4.[address] Gomes notified.
[2024-12-08] MEDS: 0.9% Normal Saline (1000mL) 1,000 ML 999 ML IV (10:24)
--- NOTE | 2024-12-08 10:37 | ED.RN ---
ATTEMPTED TO CALL [facility] ([facility]) WENT TO [employer], MAILBOX FULL SO UNABLE TO LEAVE [employer]
--- NOTE | 2024-12-08 11:20 | RAD_ITS ---
PROCEDURE: CHEST 1 VIEW (PORTABLE) REASON FOR EXAM: Endotracheal tube placement. TECHNIQUE: Frontal view of the chest. COMPARISON: Comparison is made with prior study dated December 08, 2024 and earlier in the day. FINDINGS: The tip of the endotracheal tube is at 3.8 the hong. An orogastric tube is seen. EKG electrodes pain. Left lower lobe infiltrate with blunting of the left costophrenic angle. Stable infiltrate or mass lesion in the left lung apex. RAD/Chest 1 View (Portable) IMPRESSION: The tip of the endotracheal tube is at 3.8 cm proximal to the hong. Left lower lobe infiltrate with blunting of the left costophrenic angle. Stable mass or infiltrate in the left upper lobe. Reading Location: [facility]
[2024-12-08 11:36] LABS: TROPONIN VARIANCE 2 HR 231; Troponin T High Sens 2 HR 246 ng/L (<=22)
[2024-12-08] MEDS: 0.9% Normal Saline (1000mL) 1,000 ML 200 ML IV (11:45)
[2024-12-08 12:05] LABS: Base Excess -2 mmol/L (-2 to +2); Bicarbonate 26.6 mmol/L (22-26); Mode Not entered; O2 Delivery Device BiPAP; PEEP 5; PO2 23 mmHG (75-100); RR 14; SITE R Brach; SO2 28 % (95-99); Total Carbon Dioxide 29 mmol/L; pCO2 69.7 mmHg (35-45); pH 7.19 (7.35-7.45)
--- NOTE | 2024-12-08 12:20 | ED.RN ---
Critical Troponin 454. Dr. Gomes and primary nurse notified
[2024-12-08 12:23] LABS: TROPONIN VARIANCE 4 HR 439; Troponin T High Sens 4 HR 454 ng/L (<=22)
--- NOTE | 2024-12-08 12:45 | RAD_ITS ---
EXAM: XR Chest, 1 View CLINICAL INDICATION: TECHNIQUE: Frontal view of the chest. COMPARISON: No relevant prior studies available. FINDINGS: LUNGS AND PLEURAL SPACES: See below. HEART: Cardiomegaly with mild congestion. MEDIASTINUM: Unremarkable. Normal mediastinal contour. BONES/JOINTS: Unremarkable. No acute fracture. TUBES, LINES AND DEVICES: Right IJ venous catheter with distal tip in the atriocaval junction. No pneumothorax. The endotracheal tube (ETT) is in satisfactory position. Enteric tube tip in the stomach. RAD/CXR for Line Placement IMPRESSION: 1. Right IJ venous catheter with distal tip in the atriocaval junction. No pn eumothorax. 2. Cardiomegaly with mild congestion. Reading Location: [facility]
--- NOTE | 2024-12-08 13:02 | ED.RN ---
phil updated about patients status and potential transfer
[2024-12-08] MEDS: Norepinephrine 8 MG in 0.9% Normal Saline (250mL Bag) 242 ML 9.4 MG CONT INF (13:03)
[2024-12-08 13:10] LABS: Hematocrit 36.6 % (40-54)
[2024-12-08 13:25] LABS: Blood Gas Specimen Type VEN
--- NOTE | 2024-12-08 13:50 | NURSING ---
called physicians and placed on will call list for transport to [facility]
[2024-12-08] MEDS: Vancomycin HCl 2,000 MG in 0.9% Normal Saline (500mL Bag) 500 ML 250 MG IV (14:41)
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
[2024-12-08 15:33] LABS: Base Excess -5 mmol/L (-2 to +2); Bicarbonate 20.3 mmol/L (22-26); Blood Gas Specimen Type ART; Mode AC; O2 Delivery Device Adult Vent; PEEP 5; PO2 140 mmHG (75-100); RR 18; SITE L Brach; SO2 99 % (95-99); Total Carbon Dioxide 21 mmol/L; pCO2 33.4 mmHg (35-45); pH 7.39 (7.35-7.45)
[2024-12-08] MEDS: dexMEDEtomidine 400 MCG in 0.9% Normal Saline (100mL Bag) 96 ML 22.8 MCG CONT INF (16:25)
[2024-12-08 16:32] LABS: Lactic Acid 2.1 mmol/L (0.0-2.0)
[2024-12-08] MEDS: fentaNYL drip 100 ML 12.5 MCG CONT INF ×2 (17:03→17:05)
--- NOTE | 2024-12-08 18:43 | ED.RN ---
updated Alissa on patients status and ICU room number
--- NOTE | 2024-12-08 19:01 | ED.RN ---
report given to PULP AND PAPER TESTER
[2024-12-08] MEDS: dexMEDEtomidine 400 MCG in 0.9% Normal Saline (100mL Bag) 96 ML 25.1 MCG CONT INF (20:12)
[2024-12-08 20:20] LABS: Hematocrit 38.9 % (40-54); Hemoglobin 13.1 g/dL (13.0-16.5); Mean Corp Hgb Conc 33.7 g/dL (32-36); Mean Corpuscular Hgb 30.3 pg (27.0-32.0); Mean Corpuscular Volume 89.8 fL (80-94); Mean Platelet Vol. 10.3 fl (6.2-12.0); Platelet Count 257 K/mm3 (150-450); RBC Distribution Width CV 13.4 % (11.6-14.6); RBC Distribution Width SD 44.1 fl (35.1-43.9); Red Blood Count 4.33 M/mm3 (4.6-6.2); White Blood Count 15.6 K/mm3 (4.4-11.0)
[2024-12-08] MEDS: Chlorhexidine 15 ML PO (23:05)
[2024-12-08] MEDS: dexMEDEtomidine 400 MCG in 0.9% Normal Saline (100mL Bag) 96 ML 27.4 MCG CONT INF (23:58)
[2024-12-08] MEDS: fentaNYL drip 100 ML 15 MCG CONT INF (23:59)
[2024-12-09] VITALS (25 sets, daily range): BP systolic 96–147; BP diastolic 53–78; PULSE 37–56; RESP 16–20; TEMP 37.4–38.4; O2SAT 93–100; BMI 28.9
[2024-12-09] MEDS: CHLORHEXIDINE GLUC 2% CLOTH 1 EACH TOWELETTE TOPICAL (01:47)
[2024-12-09] MEDS: Acetaminophen 650 MG Suppository RC (01:47)
[2024-12-09] MEDS: dexMEDEtomidine 400 MCG in 0.9% Normal Saline (100mL Bag) 96 ML 27.4 MCG CONT INF (03:38)
[2024-12-09 05:49] LABS: Hemoglobin 12.5 g/dL (13.0-16.5); Mean Corp Hgb Conc 33.8 g/dL (32-36); Mean Corpuscular Hgb 30.2 pg (27.0-32.0); Mean Corpuscular Volume 89.4 fL (80-94); Mean Platelet Vol. 10.7 fl (6.2-12.0); Platelet Count 190 K/mm3 (150-450); RBC Distribution Width CV 13.5 % (11.6-14.6); RBC Distribution Width SD 44.2 fl (35.1-43.9); Red Blood Count 4.14 M/mm3 (4.6-6.2); White Blood Count 11.7 K/mm3 (4.4-11.0)
[2024-12-09 06:09] LABS: Anion Gap 11 (5-15); BUN 17 mg/dL (4-19); BUN/Creat Ratio 17.4 RATIO (10-20); Calcium,Total 8.3 mg/dL (7.6-11.0); Carbon Dioxide 19.5 mmol/L (21.0-32.0); Chloride 110 mmol/L (98-108); Creatinine, Serum 0.95 mg/dL (0.70-1.20); EST Glomerular Filtration Rate 97 (>60); Estimated Creatinine Clearance 103.49 ml/min (50-250); Glucose 108 mg/dL (70-99); Potassium 4.1 mmol/L (3.3-5.1); Sodium Level 140 mmol/L (133-145)
[2024-12-09] MEDS: fentaNYL drip 100 ML 15 MCG CONT INF (06:34)
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
[2024-12-09] MEDS: dexMEDEtomidine 400 MCG in 0.9% Normal Saline (100mL Bag) 96 ML 25.1 MCG CONT INF (08:00)
--- NOTE | 2024-12-09 08:28 | ECHOCS_ITS ---
Reason For Study Reason For Study: DYSPNEA/SOB Procedure This was a 2D Doppler, Color Flow transthoracic echocardiogram. The study was technically difficult. Due to body habitus. Contrast injection was performed. Exam performed portable in ICU/CCU. Left Ventricle Normal LV size. Mild concentric left ventricular hypertrophy. Mild global left ventricular systolic dysfunction. The left ventricular ejection fraction is 45 %. Stage 1 diastolic dysfunction. Right Ventricle Normal right ventricle. Atria Normal left atrium. Suspect central line tip in the right atrium. Mitral Valve Trivial mitral valve insufficiency. Tricuspid Valve Trivial tricuspid valve insufficiency. Unable to estimate RV systolic pressure due to insufficient tricuspid regurgitant envelope. Aortic Valve Trisinus/trileaflet aortic valve. Pulmonic Valve The pulmonic valve is not well visualized. Great Vessels Normal sized aortic root. Pericardium/Pleural No pericardial effusion. Medication Diluted definity 3.0ml given slow IV push to enhance endocardial definition. MMode/2D Measurements & Calculations LVIDd: 5.1 cm IVSd: 1.4 cm Ao root diam: 3.8 cm LVIDs: 3.5 cm LVPWd: 1.3 cm RVDd: 3.6 cm FS: 30.3 % LAV(MOD-bp): 76.7 ml LVAd ap4: 40.4 cm2 SV(MOD-sp4): 67.5 ml LAV(MOD-bp) Indexed: 36.6 ml/m2 LVLd ap4: 9.1 cm SI(MOD-sp4): 32.2 ml/m2 LAV(MOD-sp2): 69.8 ml EDV(MOD-sp4): 143.8 ml LAV(MOD-sp4): 78.4 ml EDV(sp4-el): 151.5 ml LVAs ap4: 26.8 cm2 LVLs ap4: 7.7 cm ESV(MOD-sp4): 76.3 ml ESV(sp4-el): 79.8 ml EF(MOD-sp4): 47.0 % EF(sp4-el): 47.3 % SV(sp4-el): 71.7 ml LA A4 area: 23.1 cm2 LA dimension(2D): 3.6 cm RA A4 area: 16.6 cm2 TAPSE: 2.1 cm Time Measurements MV dec time: 0.31 sec Doppler Measurements & Calculations MV E max ramirez: 54.1 cm/sec Lat Peak E' Ramirez: 6.0 cm/sec Med Peak E' Ramirez: 4.7 cm/sec MV A max ramirez: 48.2 cm/sec E/E' lat: 9.0 E/E' med: 11.4 MV E/A: 1.1 MV V2 max: 57.4 cm/sec MV P1/2t max ramirez: 63.4 cm/sec Ao V2 max: 151.7 cm/sec MV max P.3 mmHg MV P1/2t: 108.7 msec Ao max P.2 mmHg MV V2 mean: 25.8 cm/sec MV dec slope: 170.8 cm/sec2 Ao V2 mean: 87.8 cm/sec MV mean P.35 mmHg MVA(P1/2t): 2.0 cm2 Ao mean P.6 mmHg MV V2 VTI: 25.5 cm Ao V2 VTI: 21.9 cm AV (velocity ratio): 0.84 LV V1 max: 106.8 cm/sec PA V2 max: 110.1 cm/sec LV V1 max P.6 mmHg LV V1 mean P.2 mmHg LV V1 mean: 70.8 cm/sec LV V1 VTI: 18.4 cm ECHO/Echo Complete W/ Contrast Interpretation Summary Mild concentric left ventricular hypertrophy. Mild global left ventricular systolic dysfunction. The left ventricular ejection fraction is 45 %. Stage 1 diastolic dysfunction. Central line tip in the right atrium. Ordering Physician: Cory Cuello Referring Physician: DAYNA PCP Performed By: Cielo Ac, EMANI, RVT
--- NOTE | 2024-12-09 08:44 | PN.HOSP_ITS ---
Reason for Visit Reason for Visit: Diagnoses Acute respiratory failure, unspecified whether with hypoxia or hypercapnia (12/08/24) Hemoptysis (12/08/24) Objective Data Objective Data Vital Signs: Vital Signs Temp Pulse Resp BP Pulse Ox O2 Del Method FiO2 100.3 F H 43 L 18 132/71 H 99 Mechanical Ventilator 30 12/09/24 07:00 12/09/24 08:40 12/09/24 08:40 12/09/24 07:00 12/09/24 08:40 12/09/24 07:00 12/09/24 08:40 Oxygen Delivery Method Mechanical Ventilator Weight: 201 lb 15.095 oz Body Mass Index (BMI) 28.9 Intake & Output: Intake and Output for Last 24 Hours 12/07/24 12/08/24 12/09/24 23:59 23:59 23:59 Intake Total 4260.02 / 4261.18 323.38 / 323.38 Output Total 800 / 800 200 / 200 Balance 3460.02 / 3461.18 123.38 / 123.38 Lab / Micro Data 12/09/24 05:20 12/09/24 05:20 Labs: Laboratory Results - last 24 hr 12/08/24 07:40: Reactive Lymphocytes 2+, Platelet Estimate A, Sodium 146 H, Potassium 4.1, Chloride 102, Carbon Dioxide 11.1 L, Anion Gap 33 H, BUN 11, Creatinine 1.08, Estim Creat Clear Calc 90.85, Est GFR (MDRD) Non-Af 83, BUN/Creatinine Ratio 10.1, Glucose 204 H, Calcium 10.1, Total Bilirubin 0.40, Direct Bilirubin 0.16, AST 26, ALT 18, Alkaline Phosphatase 85, Total Creatine Kinase 87, Troponin T High Sens 16, Total Protein 8.3, Albumin 4.5, Globulin 3.7, Triglycerides 125, Lipase 52 12/08/24 09:20: Lactic Acid 4.3 H* 12/08/24 10:20: Troponin T Hi Sens 2 Hr 246 H*, Troponin T Hi Sens 2Hr Delta 231 12/08/24 11:55: Troponin T Hi Sens 4Hr 454 H*, Troponin T Hi Sens 4Hr Delta 439 12/08/24 12:46: Hgb 12.0 L, Hct 36.6 L 12/08/24 15:41: Lactic Acid 2.1 H 12/08/24 20:04: WBC 15.6 H, RBC 4.33 L, Hgb 13.1, Hct 38.9 L, MCV 89.8 D, MCH 30.3, MCHC 33.7 D, RDW Std Deviation 44.1 H, RDW Coeff of Cris 13.4, Plt Count 257, MPV 10.3 12/09/24 05:20: WBC 11.7 H, RBC 4.14 L, Hgb 12.5 L, Hct 37.0 L, MCV 89.4, MCH 30.2, MCHC 33.8, RDW Std Deviation 44.2 H, RDW Coeff of Cris 13.5, Plt Count 190, MPV 10.7, Sodium 140, Potassium 4.1, Chloride 110 H, Carbon Dioxide 19.5 L, Anion Gap 11, BUN 17, Creatinine 0.95, Estim Creat Clear Calc 103.49, Est GFR (MDRD) Non-Af 97, BUN/Creatinine Ratio 17.4, Glucose 108 H, Calcium 8.3 ABG Data ABG results: ABG 12/08/24 12/08/24 11:59 15:30 Specimen Type CARO ART Sample Site R Brach L Brach pH 7.19 L* 7.39 Bicarbonate Actual 26.6 H 20.3 L Total CO2 29 21 Base Excess -2 -5 L O2 Saturation 28 L 99 O2 % 40.0 40.0 ABG pCO2 69.7 H* 33.4 L ABG pO2 23 L* 140 H Respiration Rate 14 18 O2 Delivery Device BiPAP Adult Vent Vent Mode Not entered AC Tidal Volume 500.0 500.0 POC PEEP 5 5 Crit Call To/Read Back Yes Blood Gas Notified Whom Dr. Gomes Radiography Diagnostic Testing: Radiology Impression Chest CTA 12/08/24 08:39 IMPRESSION: 1. No pulmonary embolism is identified. Some of the distal pulmonary arteries cannot be evaluated due to suboptimal opacification. 2. Probable developing multifocal pneumonia. Reading [facility] Chest X-Ray 12/08/24 11:20 IMPRESSION: The tip of the endotracheal tube is at 3.8 cm proximal to the hong. Left lower lobe infiltrate with blunting of the left costophrenic angle. Stable mass or infiltrate in the left upper lobe. Reading Location: [id number] Chest X-Ray 12/08/24 12:45 IMPRESSION: 1. Right IJ venous catheter with distal tip in the atriocaval junction. No pneumothorax. 2. Cardiomegaly with mild congestion. Reading [facility] Assessment & Plan Assessment/Plan (1) Acute respiratory failure: PLAN: Plan 52-year-old man with history of shortness of breath and hemoptysis with prior concerns regarding aortopulmonary fistula, admitted yesterday with acute on chronic respiratory failure with a pH of 6.8 at admission and was found to have significant amount of blood on intubation. CT also showed multifocal pneumonia 1. Acute hypoxic respiratory failure with recurrent hemoptysis ? Admit under inpatient status to ICU. Power Operator consulted. Patient with profound hypoxia on admit and severe metabolic acidosis suspected secondary to recurrent bleed into the airways with hemoptysis. Unclear etiology but may be secondary to aortopulmonary fistula in setting of prior chest trauma with aortic surgery and concern for aortic ulcer. Required emergent intubation in the ED. CTA chest showed no PE, did show concern for developing pneumonia versus blood in the airways. Patient had significantly improved oxygenation postintubation and after significant blood was suctioned from the airways initially there was much less blood suctioned after this. Continue sedation and low-dose Levophed as needed; suspected that mildly low blood pressures are due to sedation. Appreciate professional healthcare representative recommendations. Low concern for active infection, will hold on antibiotics. Plan is for transfer to [facility] main for further management once a bed becomes available. 2. Elevated lactic acid and elevated troponins ? Initial lactic acid 4.3, improved to 2.1 after intubation. Troponin trend 246 > 454. Third troponin pending. No EKG changes noted. Presume these both were secondary to severe hypoxia from respiratory failure as above. No need to monitor further. 3. Mild acute blood loss anemia ? Hemoglobin trend 15.3 > 12.0 in the ED. Will repeat hemoglobin tonight and tomorrow morning for close monitoring. Presumed secondary to bleed into the airways leading to hemoptysis. 4. History of chest trauma with aortic surgery ? Had surgery for aortic repair about 20 years ago at [facility]. Had done well since then until 3 months ago. Further management as above.
[2024-12-09 09:34] LABS: Mucous, Urine 0 SEEN /hpf (<or=2+); Squamous Epithelial Cells - UA 0 SEEN /hpf (0-5)
[2024-12-09] MEDS: Vancomycin HCl 2,000 MG in 0.9% Normal Saline (500mL Bag) 500 ML 250 MG IV (09:34)
[2024-12-09] MEDS: 0.9% Normal Saline (100mL Bag) 100 ML 15 ML IV (09:35)
[2024-12-09 09:39] LABS: Color, Urine Yellow (Yellow); Glucose, Dipstick Normal (Normal); Leukocyte Esterase-Dipstick 25 /ul (Negative); Nitrite-Dipstick Negative (Negative); Occult Blood-Urine 10 /ul (Negative); Protein-Dipstick 30 mg/dl (Negative); Specific Gravity, Urine 1.025 (1.002-1.030); Urine Clarity Sl. Cloudy (Clear); Urine Urobilinogen 1 mg/dl (Normal)
[2024-12-09] MEDS: 0.9% Saline Lock 10 ML Syringe IV (09:40)
[2024-12-09] MEDS: Piperacil/Tazobactam 3.375 GM in 0.9% Normal Saline (50mL MB+) 50 ML IV ×2 (09:40→15:00)
[2024-12-09 09:41] LABS: Urine Bilirubin Dipstick 1 mg/dL (Negative)
[2024-12-09 09:42] LABS: Ketone-Dipstick 150 mg/dl (Negative)
[2024-12-09] MEDS: Propofol 10MG/Ml 1,000 MG/100 ML Bottle 5.5 MG CONT INF (09:44)
[2024-12-09] MEDS: Chlorhexidine 15 ML PO (09:48)
[2024-12-09 09:50] LABS: Bacteria 1+ /hpf (None Seen); Red Blood Cells-Urine 0 SEEN /hpf (0-5); White Blood Cells 0-5 SEEN /hpf (0-5)
--- NOTE | 2024-12-09 09:56 | CASEMGMT ---
Insurance review for hospitals [facility] if transfer is recommended is as follows: [facility], [facility], [place], [facility], [facility], [facility], , [facility], [facility], and [place]. Daisy Grace, Discharge Planning Asst.
[2024-12-09 10:01] LABS: CPK Total, Creatine Kinase 144 U/L (24-195); Triglycerides 108 mg/dL
[2024-12-09 10:05] LABS: Procalcitonin 1.34 ng/mL (<=0.10)
--- NOTE | 2024-12-09 10:09 | PHA.PHARE_ITS ---
Consult Antibiotic Management Pharmacy has been consulted to manage selected antibiotic: Vancomycin Type of Intervention Type of Consult: New start Prior Doses of Antibiotics Prior Doses of Antibiotics Received/Current Regimen: received vanc 2000mg IV x1 yesterday in E.R. starting at 14:41 Labs Labs: Sodium 140 mmol/L (133-145) 12/09/24 05:20 Potassium 4.1 mmol/L (3.3-5.1) 12/09/24 05:20 Chloride 110 mmol/L (98-108) H 12/09/24 05:20 Carbon Dioxide 19.5 mmol/L (21.0-32.0) L 12/09/24 05:20 Anion Gap 11 (5-15) 12/09/24 05:20 BUN 17 mg/dL (4-19) 12/09/24 05:20 Creatinine 0.95 mg/dL (0.70-1.20) 12/09/24 05:20 Est GFR (MDRD) Non-Af 97 (>60) 12/09/24 05:20 BUN/Creatinine Ratio 17.4 RATIO (10-20) 12/09/24 05:20 Glucose 108 mg/dL (70-99) H 12/09/24 05:20 Dosing Weight Weight used for dosin.6 kg Estimated Creatinine Clearance Estimated Creatinine Clearance: 103 ml/min Goal Trough Goal Trough: 15-20 mcg/mL Pharmacy Plan for Drug Dosing Pharmacy Plan for Drug Dosing: Since it has been approximately 19 hours since the dose in E.R. was given yesterday, will load with another 2000mg x1 as ordered for initial dose today, then continue with 1000mg q8h per [facility] protocol. Will check a trough before the 4th dose tomorrow. Pharmacy Service will continue to monitor and adjust dosing as required. Follow-Up Labs Follow-Up Labs: Trough: Vancomycin Date/Time Labs Ordered Labs to be done on [date and time ordered]: 12/10/24 09:30
--- NOTE | 2024-12-09 11:25 | DS.PCM_ITS ---
Providers Date of Admission: 12/08/24 Date of Discharge: 12/09/24 Primary Care Physician: Yolande Primary Care Phys Consultations 12/08/24 19:45 Consult: Director Of Professional Services / Pulmonary Medicine Routine Consulting Provider: Intensivists/Pulmonary Med Reason for Consult: acute respiratory failure EMERGENT Consult: No MD Notified: Yes Date Notified: 12/09/24 Time Notified: 05:14 Method of Notification: Text Reason For Visit: ACUTE HYPOXIC RESPIRAATORY FAULURE Diagnosis Discharge Diagnosis (1) Acute respiratory failure: Status: Acute Code(s): J96.00 - Acute respiratory failure, unspecified whether with hypoxia or hypercapnia (2) Hemoptysis: Status: Acute Code(s): R04.2 - Hemoptysis (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 CT also showed multifocal pneumonia. 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 Patient was discussed with cardiothoracic surgery at [facility] and [facility]. There are no openings at [facility] however patient is accepted for further management at [facility]. Given his acute presentation he needs urgent intervention and he is being transferred for further management likely [facility]. 1. Acute hypoxic respiratory failure with recurrent hemoptysis ? Possibly secondary to aortopulmonary fistula in setting of prior chest trauma with aortic surgery and concern for aortic ulcer. -Required emergent intubation in the ED. -CTA chest showed no PE, did show concern for developing pneumonia versus blood in the airways. -Patient had significantly improved oxygenation postintubation and after significant blood was suctioned from the airways initially there was much less blood suctioned after this. -Continue sedation and low-dose Levophed as needed; suspected that mildly low blood pressures are due to sedation. -Appreciate missile inspector recommendations. -Low concern for active infection, will hold on antibiotics. 2. Elevated lactic acid and elevated troponins ? Initial lactic acid 4.3, improved to 2.1 after intubation. Troponin trend 246 > 454. Third troponin pending. No EKG changes noted. Presume these both were secondary to severe hypoxia from respiratory failure as above. No need to monitor further. 3. Mild acute blood loss anemia ? Hemoglobin trend 15.3 > 12.0 in the ED. Will repeat hemoglobin tonight and tomorrow morning for close monitoring. Presumed secondary to bleed into the airways leading to hemoptysis. 4. History of chest trauma with aortic surgery ? Had surgery for aortic repair about 20 years ago at [facility]. Had done well since then until 3 months ago. Further management as above. Medications at Discharge Home Medications NK 11/05/24 Hospital Course Operations None Procedures None Physical Exam Const Constitutional Narrative: Respond appropriately to commands, ongoing sedation HEENT normocephalic Eyes PERRL Neck no lymphadenopathy Resp normal respiratory effort Cardio regular rate and regular rhythm GI normal to inspection, nondistended, normoactive bowel sounds Extremity Extremity Narrative: Prior amputation of the right leg Skin no rashes or lesions noted Neuro Neuro Narrative: Ongoing sedation Weight / BMI Weight Weight: 201 lb 15.095 oz Body Mass Index (BMI) 28.9 ABG / Lab / Microbiology Data 12/09/24 05:20 12/09/24 05:20 Laboratory: Laboratory Results - last 24 hr 12/08/24 10:20: Troponin T Hi Sens 2 Hr 246 H*, Troponin T Hi Sens 2Hr Delta 231 12/08/24 11:55: Troponin T Hi Sens 4Hr 454 H*, Troponin T Hi Sens 4Hr Delta 439 12/08/24 12:46: Hgb 12.0 L, Hct 36.6 L 12/08/24 15:41: Lactic Acid 2.1 H 12/08/24 20:04: WBC 15.6 H, RBC 4.33 L, Hgb 13.1, Hct 38.9 L, MCV 89.8 D, MCH 30.3, MCHC 33.7 D, RDW Std Deviation 44.1 H, RDW Coeff of Cris 13.4, Plt Count 257, MPV 10.3 12/09/24 05:20: WBC 11.7 H, RBC 4.14 L, Hgb 12.5 L, Hct 37.0 L, MCV 89.4, MCH 30.2, MCHC 33.8, RDW Std Deviation 44.2 H, RDW Coeff of Cris 13.5, Plt Count 190, MPV 10.7, Sodium 140, Potassium 4.1, Chloride 110 H, Carbon Dioxide 19.5 L, Anion Gap 11, BUN 17, Creatinine 0.95, Estim Creat Clear Calc 103.49, Est GFR (MDRD) Non-Af 97, BUN/Creatinine Ratio 17.4, Glucose 108 H, Calcium 8.3 12/09/24 09:20: Total Creatine Kinase 144, Triglycerides 108, Procalcitonin 1.34 H, Urine Color Yellow, Urine Clarity Sl. Cloudy, Urine pH 5.0, Ur Specific [place] 1.025, Urine Protein 30 H, Urine Glucose (UA) Normal, Urine Ketones 150 A*, Urine Occult Blood 10 H, Urine Nitrite Negative, Urine Bilirubin 1 H, Urine Urobilinogen 1 H, Ur Leukocyte Esterase 25 H, Urine RBC 0 SEEN, Urine WBC 0-5 SEEN, Ur Squamous Epith Cells 0 SEEN, Urine Bacteria 1+, Urine Mucus 0 SEEN Microbiology: Microbiology 12/09/24 09:00 Nasal Secretion MRSA (PCR) - Final 12/08/24 08:26 Sputum, Induced/Lukens Gram Stain - Final ABG: ABG 12/08/24 12/08/24 11:59 15:30 Specimen Type CARO ART Sample Site R Brach L Brach pH 7.19 L* 7.39 Bicarbonate Actual 26.6 H 20.3 L Total CO2 29 21 Base Excess -2 -5 L O2 Saturation 28 L 99 O2 % 40.0 40.0 ABG pCO2 69.7 H* 33.4 L ABG pO2 23 L* 140 H Respiration Rate 14 18 O2 Delivery Device BiPAP Adult Vent Vent Mode Not entered AC Tidal Volume 500.0 500.0 POC PEEP 5 5 Crit Call To/Read Back Yes Blood Gas Notified Whom Dr. Gomes Radiography Diagnostic Testing: Radiology Impression Chest X-Ray 12/08/24 11:20 IMPRESSION: The tip of the endotracheal tube is at 3.8 cm proximal to the hong. Left lower lobe infiltrate with blunting of the left costophrenic angle. Stable mass or infiltrate in the left upper lobe. Reading Location: [id number] Chest X-Ray 12/08/24 12:45 IMPRESSION: 1. Right IJ venous catheter with distal tip in the atriocaval junction. No pneumothorax. 2. Cardiomegaly with mild congestion. Reading Location: [facility] D/C Instructions DC O2, CPAP, BIPAP Needs PSN CPAP & BiPAP: BiPAP & CPAP Settings per PSN Fraction of Inspired Oxygen ( 30 12/09/24 09:00 FIO2) Home O2 Discharge instructions: No Meaningful Use Info Meaningful Use Meaningful Use Diagnoses (Choose all that apply): None applicable Ischemic Stroke Statin Dosing Therapy Reference: STATIN DOSE THERAPY REFERENCE: * Patients > 75 years receive moderate or high dose statin therapy. * Patients 75 years or YOUNGER should receive HIGH intensity statin dose unless contraindicated. You will be required to document reason for non-treatment if statin daily dose does not meet guidelines. HIGH DOSE STATIN THERAPY DAILY Atorvastatin > than or = to 40 mg Rosuvastatin > than or = to 20 mg Amlodipine + Atorvastatin > than or = to 2.5/40 mg Ezetimibe + Simvastatin 10/80 mg Simvastatin 80mg Discharge Plan Admission Admit Date/Time: 12/08/24 15:37 Primary Reason for Your Visit: Hemoptysis, respiratory failure Attending Provider: Chance Mackey Primary Care Provider: Care Physician,No Primary Consulting Providers: Joshua Hyde; Kevin Montes; Calos Joiner; Cory Cuello; Christiano Azul; Tj Molina; Timothy Campos; Shelia Martines; Leodan Sevilla; Mike Moreno; Dhaval Lee; Kyara Schwartz; Sy Sy; David,Sidra; Jordan,Marvin; Tad,Lai; Jignesh,Gabriel; Chantel,Bahman; Franchesca Noriega; Dia Davila; Cristobal Loya; Fransico Valenzuela; Addison Ghosh; Cruz Howard Discharge Orders/Prescriptions Prescriptions: No Action NK Referrals / Follow Up: Care Physician,No Primary [Primary Care Provider] - Disposition Disposition (needs filled in before D/C Order can be placed): DC/Tx to Another Type of HCF
[2024-12-09] MEDS: Pantoprazole Sodium 40 MG in 0.9% Normal Saline (100mL MB+) 100 ML 330 MG IV (12:02)
[2024-12-09] MEDS: fentaNYL drip 100 ML 20 MCG CONT INF ×2 (12:04→17:04)
== END 2024-12-09 17:15 | disposition other institution (70) | DRG 208 ==
LOC: ED 15:17 → ICU 16:45
PROVIDERS: Internal Medicine Critical Care Medicine; Admitting Provider Hospitalist; Emergency Provider Emergency Medicine; Visit Provider Internal Medicine
DX: J96.21 Acute and chronic respiratory failure with hypoxia (principal); J18.9 Pneumonia, unspecified organism; D62 Acute posthemorrhagic anemia; R04.2 Hemoptysis; Z89.611 Acquired absence of right leg above knee; I71.22 Aneurysm of the aortic arch, without rupture; I95.2 Hypotension due to drugs; F17.210 Nicotine dependence, cigarettes, uncomplicated; J96.22 Acute and chronic respiratory failure with hypercapnia; T42.75XA Adverse effect of unspecified antiepileptic and sedative-hypnotic drugs, initial encounter; Z87.828 Personal history of other (healed) physical injury and trauma; Z98.890 Other specified postprocedural states
CPT/HCPCS: 31500; 31720; 36556; 36600; 51702; 71045; 71275; 80048; 80076; 81001; 82550; 82803; 83605; 83690; 84145; 84478; 84484; 85014; 85018; 85025; 85027; 85610; 85730; 87040; 87070; 87205; 87641; 93005; 93306; 94002; 94003; 99252; 99285; Q9957; Q9967; A4216; C8929; G0463